=== PATIENT | male | born 1975 | race Caucasian/White ===

== ENCOUNTER 2017-05-26 16:47 | Inpatient (IN) | payer OTHER ==
[~2017-05-26] VITALS: Ht 170.2 cm; Wt 72.9 kg
[2017-05-26] MEDS ORDERED: ONDANSETRON 4 MG INJ IV PRN (22:00)
[2017-05-26] MEDS ORDERED: HYDROCODONE/APAP (10/325) TAB PO PRN (22:00)
[2017-05-26 22:17] VITALS: Ht 170.2 cm; Wt 72.9 kg
[2017-05-26 22:32] VITALS: BP 133/89; RESP 20
[2017-05-26] MEDS: morphine 4 MG/ML VIAL IV PRN (22:33)
[2017-05-26] MEDS: SOD CHLORIDE 0.9% 1,000 ML IV SCH (22:34)
[2017-05-26] MEDS ORDERED: TAMSULOSIN (SR) 0.4 MG CAP PO ONE (22:41)
[2017-05-26] MEDS: CEFTRIAXONE 1 GM/50 ML (PMX) 50 ML IVPB SCH (23:38)
[2017-05-27 01:14] LABS: BASOPHILS % 0.5 % (0.0-2.0); EOSINOPHILS # 0.5 10^3/ul (0.0-0.5); EOSINOPHILS % 6.6 % (0.0-7.0); HEMATOCRIT 42.9 % (42.0-52.0); HEMOGLOBIN 14.1 g/dl (14.0-18.0); LYMPHOCYTES # 2.5 10^3/ul (0.8-2.9); LYMPHOCYTES % 32.4 % (15.0-51.0); MEAN CORPUSCULAR HEMOGLOBIN 30.9 pg (29.0-33.0); MEAN CORPUSCULAR HGB CONC 32.9 g/dl (32.0-37.0); MEAN CORPUSCULAR VOLUME 93.9 fl (82.0-101.0); MEAN PLATELET VOLUME 10.3 fl (7.4-10.4); MONOCYTE # 0.1 10^3/ul (0.3-0.9); MONOCYTES % 1.5 % (0.0-11.0); NEUTROPHIL # 4.6 10^3/ul (1.6-7.5); NEUTROPHILS % 58.9 % (39.0-77.0); PLATELET COUNT 297 10^3/UL (140-415); RED BLOOD COUNT 4.57 10^6/ul (4.70-6.10); RED CELL DISTRIBUTION WIDTH 12.8 % (11.5-14.5); WHITE BLOOD COUNT 7.9 10^3/ul (4.8-10.8)
[2017-05-27 01:15] VITALS: BP 131/80; PULSE 89; RESP 17
[2017-05-27 01:25] LABS: ADD UMIC YES; UR ASCORBIC ACID NEGATIVE (NEGATIVE); UR BILIRUBIN (Dip) NEGATIVE (NEGATIVE); UR BLOOD (Dip) 1+ mg/dL (NEGATIVE); UR CLARITY CLEAR (CLEAR); UR COLOR STRAW (YELLOW); UR GLUCOSE (Dip) NEGATIVE (NEGATIVE); UR KETONES (Dip) NEGATIVE (NEGATIVE); UR LEUKOCYTE ESTERASE (Dip) NEGATIVE Leu/ul (NEGATIVE); UR NITRITE (Dip) NEGATIVE (NEGATIVE); UR RBC 8 /HPF (0-5); UR SPECIFIC GRAVITY (Dip) 1.011 (1.003-1.030); UR TOTAL PROTEIN (Dip) NEGATIVE (NEGATIVE); UR UROBILINOGEN (Dip) NEGATIVE (NEGATIVE)
[2017-05-27 01:37] LABS: ALBUMIN/GLOBULIN RATIO 1.29; BILIRUBIN,INDIRECT 0.2 mg/dl (0-1.1); BILIRUBIN,TOTAL 0.2 mg/dl (0.2-1.3); CALCIUM 9.1 mg/dl (8.4-10.2); CREATININE 0.93 mg/dl (0.61-1.24); PHOSPHORUS 4.4 mg/dl (2.5-4.9); TOTAL PROTEIN 7.1 g/dl (6.1-8.1)
[2017-05-27] MEDS: ACETAMINOPHEN 325 MG TAB PO PRN ×3 (01:57→21:17)
[2017-05-27] MEDS: SOD CHLORIDE 0.9% 1,000 ML IV SCH ×3 (06:14→21:14)
--- NOTE | 2017-05-27 07:25 | HP ---
Date/Time of Note Date/Time of Note DATE: 05/27/17 TIME: 07:23 Assessment/Plan VTE Prophylaxis VTE Prophylaxis Intervention: SCD's Lines/Catheters IV [facility]ter [facility] (from [facility] Peripheral IV Urinary Cath still in place: No Assessment/Plan Assessment/Plan 1. Left sided nephrolithiasis, with moderate hydronephrosis -IV fluid -Flomax -Pain management -Urology consult -Order KUB. Additional imaging as needed -Check urinalysis -Will empirically be placed on antibiotic HPI/ROS Admit Date/Time Admit Date/Time May 26, 2017 at 20:23 Hx of Present Illness This is a 41-year-old male with no significant past medical history who initially presented on outside hospital complaining of left flank pain. He was diagnosed with left-sided kidney stone measuring 5 mm with moderate hydronephrosis. Patient was transferred to [facility] because of insurance reasons. He denied fever/chills, nausea/vomiting, dysuria or hematuria. . PMH/Family/Social Social History Smoking Status: Never smoker Exam/Review of Systems Vital Signs Vitals Vital Signs Date Time Temp Pulse Resp B/P Pulse Ox O2 Delivery O2 Flow Rate FiO2 05/27/17 01:15 98.4 89 17 131/80 95 Room Air Intake and Output 05/26/17 05/26/17 05/27/17 15:00 23:00 07:00 Intake Total 1990 ml Balance 1990 ml Exam Constitutional: alert, oriented, well developed Head: atraumatic, normocephalic Eyes: EOMI, PERRL Respiratory: clear to auscultation, normal air movement Gastrointestinal: other (Left flank tenderness), soft Extremities: normal pulses Labs Result Diagram: 05/27/1710405/27/17104 Medications Medications Current Medications Ondansetron HCl (Zofran Inj) 4 mg Q6H PRN IV NAUSEA AND/OR VOMITING; Start at 22:00 Morphine Sulfate (morphine) 4 mg Q4H PRN IV PAIN Last administered on 22:33; Admin Dose 4 MG; Start 05/26/17 at 22:00 Acetaminophen/ Hydrocodone Bitart 1 tab 1 tab Q4H PRN PO PAIN Last administered on 05/27/17 06:17; Admin Dose 1 TAB; Start 05/26/17 at 22:00 Sodium Chloride (NS) 1,000 ml @ 125 mls/hr Q8H IV Last administered on 06:14; Admin Dose 125 MLS/HR; Start 05/26/17 at 22:00 Tamsulosin HCl 0.4 mg 0.4 mg HS PO Last administered on 05/26/17 22:42; Admin Dose 0.4 MG; Start 05/27/17 at 21:00 Ceftriaxone Sodium (Rocephin) 50 ml @ 100 mls/hr Q12 IVPB Last administered on 05/26/17 23:38; Admin Dose 100 MLS/HR; Start 05/26/17 at 22:00 Acetaminophen (Tylenol Tab) 650 mg Q6H PRN PO PAIN AND OR ELEVATED TEMP Last administered on 05/27/17 01:57; Admin Dose 650 MG; Start 05/27/17 at 01:30 Influenza Virus Vaccine (Fluzone) 0.5 ml ONCE ONCE IM* ; Start 05/28/17 at 09:00 ; Stop 05/28/17 at 09:01 ITALIA OSUNA MD May 27, 2017 07:25
[2017-05-27 07:39] VITALS: BP 112/57; RESP 18
[2017-05-27] MEDS: CEFTRIAXONE 1 GM/50 ML (PMX) 50 ML IVPB SCH ×2 (08:34→21:13)
--- NOTE | 2017-05-27 09:01 | RADRPT ---
PROCEDURE: XR Abdomen. CLINICAL INDICATION: History of renal calculus. TECHNIQUE: AP supine abdomen x-ray. COMPARISON: None. FINDINGS: The bowel gas pattern is normal. There is no evidence of obstruction. There are no abnormal calcifications overlying the urinary tracts. The osseus structures are unremarkable. IMPRESSION: 1. Unremarkable abdomen radiograph. 2. No urinary tract calculus demonstrated. RPTAT: QQ .Rolf Matamoros MD, MD Date Time Electronically viewed and signed by .Rolf Matamoros MD, on 05/27/2017 09:01 .R/
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
[2017-05-27] MEDS: IBUPROFEN 600 MG TAB PO SCH ×2 (12:17→17:44)
[2017-05-27 13:38] VITALS: BP 136/66; RESP 18
[2017-05-27 20:50] VITALS: BP 112/64; RESP 20
[2017-05-27] MEDS ORDERED: TAMSULOSIN (SR) 0.4 MG CAP PO SCH ×2 (21:00→21:20)
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
[2017-05-28 02:20] VITALS: BP 98/57; RESP 20
[2017-05-28] MEDS: morphine 4 MG/ML VIAL IV PRN (02:54)
[2017-05-28 05:18] LABS: BASOPHIL # 0.1 10^3/ul (0.0-0.1); BASOPHILS % 0.9 % (0.0-2.0); EOSINOPHILS # 0.9 10^3/ul (0.0-0.5); EOSINOPHILS % 16.4 % (0.0-7.0); HEMATOCRIT 38.1 % (42.0-52.0); HEMOGLOBIN 12.2 g/dl (14.0-18.0); LYMPHOCYTES # 1.3 10^3/ul (0.8-2.9); LYMPHOCYTES % 24.4 % (15.0-51.0); MEAN CORPUSCULAR HEMOGLOBIN 29.5 pg (29.0-33.0); MEAN PLATELET VOLUME 10.7 fl (7.4-10.4); MONOCYTE # 0.5 10^3/ul (0.3-0.9); MONOCYTES % 10.2 % (0.0-11.0); NEUTROPHIL # 2.5 10^3/ul (1.6-7.5); NEUTROPHILS % 47.9 % (39.0-77.0); PLATELET COUNT 219 10^3/UL (140-415); RED BLOOD COUNT 4.14 10^6/ul (4.70-6.10); RED CELL DISTRIBUTION WIDTH 12.7 % (11.5-14.5); WHITE BLOOD COUNT 5.3 10^3/ul (4.8-10.8)
[2017-05-28 05:47] LABS: CALCIUM 8.5 mg/dl (8.4-10.2); CREATININE 0.7 mg/dl (0.61-1.24); POTASSIUM 3.9 mmol/L (3.5-5.1)
[2017-05-28] MEDS: SOD CHLORIDE 0.9% 1,000 ML IV SCH (06:01)
[2017-05-28 07:00] VITALS: BP 113/68; RESP 18
--- NOTE | 2017-05-28 08:57 | RADRPT ---
PROCEDURE: XR Abdomen. CLINICAL INDICATION: Left ureter calculus. TECHNIQUE: AP supine abdomen x-ray. COMPARISON: 05/27/2017. FINDINGS: The bowel gas pattern is normal. There is no evidence of obstruction. There are no abnormal calcifications overlying the urinary tracts. The osseus structures are unremarkable. IMPRESSION: 1. Unremarkable abdomen radiograph. 2. No change from 05/27/2017. RPTAT: QQ .Rolf Matamoros MD, MD Date Time Electronically viewed and signed by .Rolf Matamoros MD, MD on 05/28/2017 08:57 .R/
[2017-05-28] MEDS ORDERED: INFLUENZA VIRUS VACCINE 0.5 ML (DISPENSING) IM* ONE (09:00)
[2017-05-28] MEDS: IBUPROFEN 600 MG TAB PO SCH (09:02)
[2017-05-28] MEDS: CEFTRIAXONE 1 GM/50 ML (PMX) 50 ML IVPB SCH (09:02)
--- NOTE | 2017-05-28 09:29 | PDOCDIS ---
Discharge Instructions CONDITION Patient Condition: Stable HOME CARE INSTRUCTIONS: Diet Instructions: Regular FOLLOW UP/APPOINTMENTS Follow-up Plan 1.Follow up with primary care physician in 1 week If you don't have one please let someone know, we can give you resources that may help you pick one. You may also call your insurance company to assign one to you. Review your medication list with your nurse before leaving and if you need new prescriptions please let your nurse know. I may have made changes to your home medications or given you new prescriptions, please let your primary doctor know as well. Stay compliant with your medications and report any side effects to your PCP or pharmacist. Return to the ER if you have any concerns and cannot reach your doctors or call your insurance company, they usually have a nurse that can help you. 2. Follow-up with in 2 weeks [id number] [facility] [address] [place] [address] Office 3. Call 911 or go to the nearest emergency room if experiencing loss of consciousness, dizziness, chest pain, shortness of breath, vomiting/abdominal pain, speech difficulties, motor weakness or any unusual symptoms. KATHRYN NATHAN NP May 28, 2017 09:29
[2017-05-28] MEDS ORDERED: IBUP-1542 PO (09:30)
[2017-05-28] MEDS ORDERED: TAMS-14 PO (09:30)
[2017-05-28] MEDS ORDERED: SULF1TAB31 PO (09:30)
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
[2017-05-28] MEDS ORDERED: CIPR500T4 PO (10:18)
== END 2017-05-28 11:00 | disposition home or self-care (01) | DRG 694 ==
LOC: MS1 20:23
PROVIDERS: ADMIT Internal Medicine; ATTEND Internal Medicine
DX: N13.2 Hydronephrosis with renal and ureteral calculous obstruction (principal)
CPT/HCPCS: 74000; 80048; 80053; 81001; 82340; 83735; 84100; 84560; 85025; 87081; 90686; J0696; J2270; J7030